=== PATIENT | female | born 1970 | race Caucasian/White ===

== ENCOUNTER 2019-02-17 11:37 | Emergency (ER) | payer MEDICAID ==
[~2019-02-17] VITALS: Ht 152.4 cm; Wt 63.6 kg
[2019-02-17 11:52] VITALS: Ht 152.4 cm; Wt 63.6 kg
[2019-02-17] MEDS ORDERED: BUPROPION HCL150 M1 PO (11:54)
[2019-02-17] MEDS ORDERED: TRAZODONE HCL150 MG PO (11:55)
[2019-02-17 12:31] LABS: UDS - AMPHET POSITIVE QUAL (NEGATIVE); UDS - BARB NEGATIVE QUAL (NEGATIVE); UDS - BENZO POSITIVE QUAL (NEGATIVE); UDS - COCAINE NEGATIVE QUAL (NEGATIVE); UDS - OPIATE NEGATIVE QUAL (NEGATIVE); UDS - PCP NEGATIVE QUAL (NEGATIVE); UDS - THC NEGATIVE QUAL (NEGATIVE)
[2019-02-17 12:38] LABS: BASOPHILS 0.3 % (0-2); HEMATOCRIT 31.9 % (36.0-48.0); HEMOGLOBIN 11.3 g/dL (12-16); IMMATURE GRANULOCYTES 0.2 % (0-5); LYMPHOCYTES 36.2 % (15-50); MCH 29.9 pg (26.0-34.0); MCHC 35.4 g/dL (31.0-37.0); MCV 84.4 fL (80.0-100.0); MEAN PLATELET VOLUME 10.3 fL (7.4-10.4); MONOCYTES 9.5 % (2-11); NEUTROPHILS 51.8 % (40-80); PLATELET COUNT 363 10x3/uL (130-400); RBC 3.78 10x6/uL (4.00-5.40); RDW 13.1 % (11.5-14.5)
[2019-02-17 12:41] LABS: ALBUMIN 3.9 g/dL (3.4-5.0); ANION GAP 14.9 mmol/L (8-16); BILIRUBIN - TOTAL 1.32 mg/dL (0.2-1.3); CALCIUM 8.9 mg/dL (8.5-10.1); CARBON DIOXIDE 23.1 mmol/L (21.0-32.0); CREATININE - SERUM 0.9 mg/dL (0.6-1.3); MAGNESIUM - SERUM 1.8 mg/dL (1.8-2.4); PROTEIN - SERUM 7.5 g/dL (6.4-8.2)
[2019-02-17 13:00] LABS: APPEARANCE SL CLDY (CLEAR); BILIRUBIN NEGATIVE (NEGATIVE); COLOR DK YELLOW (YELLOW); GLUCOSE NEGATIVE (NEGATIVE); KETONE MODERATE mg/dL (NEGATIVE); NITRITE POSITIVE (NEGATIVE); PROTEIN 1+ mg/dL (NEGATIVE)
[2019-02-17 13:01] LABS: BACTERIA MANY /hpf (NONE SEEN); EPITHELIAL CELLS 0-5 /hpf (0-5); MUCUS <1+ /lpf (NONE SEEN); RED CELLS - URINE 0-5 /hpf (0-5)
--- NOTE | 2019-02-17 13:33 | NUR ---
PATIENT SEDATED AT THIS TIME, UNABLE TO PERFORM SUICIDE RISK ASSESSMENT.
[2019-02-17] MEDS ORDERED: MACROBID100 MG PO (14:33)
--- NOTE | 2019-02-17 16:36 | NUR ---
DR BETANCOURT NOTIFIED AND SITTER ORDERED. SITTER AT BEDSIDE. NOTIFIED CHARGE NURSE AND ATTENDING IN REGARDS TO ASSESSMENT FINDINGS. RESOURCES GIVEN TO PATIENT AND SAFETY PLAN INITIATED.
[2019-02-18 14:58] VITALS: BP 117/78
== END 2019-02-18 14:59 ==
LOC: D.ER 11:37
PROVIDERS: Family Medicine
DX: R45.851 Suicidal ideations (principal); F15.10 Other stimulant abuse, uncomplicated; N39.0 Urinary tract infection, site not specified